=== PATIENT | male | born 1985 | race Caucasian/White ===

== ENCOUNTER 2016-09-24 14:03 | Inpatient (IN) | payer SELFPAY ==
[~2016-09-24] VITALS: Ht 188 cm; Wt 121.0 kg
[2016-09-24 14:05] VITALS: BP 148/84; PULSE 81; RESP 16; TEMP 98.4; O2SAT 97
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
[2016-09-24 15:27] LABS: BLOOD, URINE NEG (NEG); COMMENT (UR) CULT NOT INDICATED; CULTURE IF INDICATED CULT NOT INDICATED; GLUCOSE,URINE NEG (NEG); KETONE, URINE NEG (NEG); MUCUS URINE FEW /lpf (OCC); NITRITE,URINE NEG (NEG); PH, URINE 6.5 (5.0-8.5); SQUAMOUS EPITHELIAL CELL URINE <1 /hpf (0-5); URINE COLOR DARK-YELLOW (YELLW/STRAW)
[2016-09-24 15:53] LABS: AUTOMATED NEUTROPHIL # 5.4 TH/MM3 (1.8-7.7); BASOPHIL % 0.2 % (0.0-2.0); EOSINOPHIL # 0.7 TH/MM3 (0-0.4); EOSINOPHIL % 7.8 % (0.0-4.0); HEMATOCRIT 50.4 % (39.0-51.0); LYMPH % 15.1 % (9.0-44.0); LYMPHOCYTE # 1.3 TH/MM3 (1.0-4.8); MEAN CELL VOLUME 92.9 FL (80.0-100.0); MEAN CORPUSCULAR HGB CONC 34.5 % (32.0-36.0); MONO % 12.9 % (0.0-8.0); PLATELET COUNT 172 TH/MM3 (150-450); RED BLOOD COUNT 5.42 MIL/MM3 (4.50-5.90); RED CELL DISTRIBUTION WIDTH 14.1 % (11.6-17.2); WHITE BLOOD COUNT 8.5 TH/MM3 (4.0-11.0)
[2016-09-24 16:05] LABS: HEMO FLAGS AUTO DIFF
[2016-09-24 16:09] LABS: BICARBONATE 27.3 MEQ/L (21.0-32.0); INDIRECT BILIRUBIN 1.8 MG/DL (0.0-0.8); POTASSIUM 4.3 MEQ/L (3.5-5.1); TOTAL BILIRUBIN ADULT 7.5 MG/DL (0.2-1.0)
[2016-09-24 16:46] LABS: PLATELET ESTIMATE SMEAR NORMAL (NORMAL); PLATELET MORPHOLOGY NORMAL (NORMAL); SCAN/DIFF AUTO DIFF CONFIRMED
[2016-09-24 18:38] VITALS: BP 163/84; PULSE 76; RESP 15; TEMP 98.6; O2SAT 98
--- NOTE | 2016-09-24 20:11 | PD ---
Physical Exam Narrative Patient is a 31-year-old male, initially by the PA in triage where the workup was initiated. Patient states he has been feeling unwell for the past 4 or 5 days. He says he has had some fullness in his head and pain in his back. He said he noticed his eyes were yellow about 3 days ago. He says it got much worse yesterday, so he got nervous and came to the hospital. He says he really hasn't had any abdominal pain. He has not had much of an appetite. He says he has had a fever at home, but has not taken his temperature. He denies nausea or vomiting. He says his urine has also been darker in color lately. He denies heavy alcohol use, says he occasionally drinks a glass of wine or has a beer. He says he has had 2 Lortab, but otherwise has not taken any Tylenol. He denies taking any other medications. Data Data Last Documented VS Vital Signs Date Time Temp Pulse Resp B/P Pulse Ox O2 Delivery O2 Flow Rate FiO2 09/24/16 22:16 90 16 131/72 97 Room Air 09/24/16 18:38 98.6 Orders Complete Blood Count With Diff (09/24/16 14:47) Basic Metabolic Panel (Bmp) (09/24/16 14:47) Hepatic Functional Panel (09/24/16 14:47) Creatine Kinase (Cpk) (09/24/16 14:47) Influenzae A/B Antigen (09/24/16 14:47) Urinalysis - C+S If Indicated (09/24/16 14:47) Tylenol (Acetaminophen) (09/24/16 14:52) Us Abdomen Gallbladder (09/24/16 ) Ct Abd/Pel W Iv Contrast(Rout) (09/24/16 ) Morphine Inj (Morphine Inj) (09/24/16 21:15) Iohexol 350 Inj (Omnipaque 350 Inj) (09/24/16 21:32) Admit Order (Ed Use Only) (09/24/16 ) Labs Laboratory Tests Test 09/24/16 09/24/16 15:05 15:25 Urine Color DARK-YELLOW Urine Turbidity CLEAR Urine pH 6.5 Urine Specific [place] 1.019 Urine Protein TRACE mg/dL Urine Glucose (UA) NEG mg/dL Urine Ketones NEG mg/dL Urine Occult Blood NEG Urine Nitrite NEG Urine Bilirubin MOD Urine Urobilinogen 4.0 MG/DL Urine Leukocyte Esterase NEG Urine WBC 1 /hpf Urine Squamous Epithelial <1 /hpf Cells Urine Amorphous Sediment RARE Urine Mucus FEW /lpf Microscopic Urinalysis Comment CULT NOT INDICATED White Blood Count 8.5 TH/MM3 Red Blood Count 5.42 MIL/MM3 Hemoglobin 17.4 GM/DL Hematocrit 50.4 % Mean Corpuscular Volume 92.9 FL Mean Corpuscular Hemoglobin 32.0 PG Mean Corpuscular Hemoglobin 34.5 % Concent Red Cell Distribution Width 14.1 % Platelet Count 172 TH/MM3 Mean Platelet Volume 7.6 FL Neutrophils (%) (Auto) 64.0 % Lymphocytes (%) (Auto) 15.1 % Monocytes (%) (Auto) 12.9 % Eosinophils (%) (Auto) 7.8 % Basophils (%) (Auto) 0.2 % Neutrophils # (Auto) 5.4 TH/MM3 Lymphocytes # (Auto) 1.3 TH/MM3 Monocytes # (Auto) 1.1 TH/MM3 Eosinophils # (Auto) 0.7 TH/MM3 Basophils # (Auto) 0.0 TH/MM3 CBC Comment AUTO DIFF Differential Comment AUTO DIFF CONFIRMED Platelet Estimate NORMAL Platelet Morphology Comment NORMAL Red Cell Morphology Comment NORMAL Sodium Level 138 MEQ/L Potassium Level 4.3 MEQ/L Chloride Level 103 MEQ/L Carbon Dioxide Level 27.3 MEQ/L Anion Gap 8 MEQ/L Blood Urea Nitrogen 11 MG/DL Creatinine 1.10 MG/DL Estimat Glomerular Filtration 79 ML/MIN Rate Random Glucose 99 MG/DL Calcium Level 9.2 MG/DL Total Bilirubin 7.5 MG/DL Direct Bilirubin 5.7 MG/DL Indirect Bilirubin 1.8 MG/DL Aspartate Amino Transf 980 U/L (AST/SGOT) Alanine Aminotransferase 2725 U/L (ALT/SGPT) Alkaline Phosphatase 200 U/L Total Creatine Kinase 91 U/L Total Protein 8.0 GM/DL Albumin 4.0 GM/DL Acetaminophen Level LESS THAN 2.0 MCG/ML [facility] Supervised Visit with JUN: Yes Narrative Course Exam shows right upper quadrant tenderness on palpation. Labs show grossly abnormal liver function tests with elevated direct bilirubin as well as very elevated AST and ALT. Ultrasound of the gallbladder shows a contracted gallbladder, no signs of infection. CT of the abdomen and pelvis shows no acute abnormalities. Patient given morphine for pain. I spoke with Dr. Ashford of GI who suggests testing for acute hepatitis. Labs were ordered. Patient admitted for further management. Diagnosis Primary Impression: Hepatitis Admitting Information Admitting Physician Requests: Admit Scripts No Active Prescriptions or Reported Meds Niurka Linn MD Sep 24, 2016 20:11
[2016-09-24] MEDS ORDERED: MORPHINE SULFATE 4 MG/ML INJ IV PUSH ONE (21:15)
[2016-09-24] MEDS ORDERED: IOHEXOL 350 MG/ML 10 ML VIAL (for RAD DIAG) IV ONE (21:32)
--- NOTE | 2016-09-24 21:54 | RADRPT ---
EXAM DATE/TIME: 09/24/2016 20:16 [facility] COMPARISON: No previous studies available for comparison. INDICATIONS : Gallstones. MEDICAL HISTORY : Hypertension. Arthritis. SURGICAL HISTORY : Right hand surgery. Right knee surgery. Left knee surgery. ENCOUNTER: Initial ACUITY: 1 week PAIN SCORE: 8/10 LOCATION: Right upper quadrant MEASUREMENTS: LIVER: 19.5 cm length COMMON DUCT: 6 mm RIGHT KIDNEY: 12.8 x 6.2 x 6.7 cm FINDINGS: LIVER: Normal echotexture without focal lesion or ductal dilatation. COMMON DUCT: No intraluminal mass or stone visualized. GALLBLADDER: Contains no stones, demonstrates no wall thickening or pericholecystic fluid. PANCREAS: The visualized portions are within normal limits. RIGHT KIDNEY: No evidence of hydronephrosis, stone, or mass. CONCLUSION: 1. No acute findings. Gallbladder contracted. No biliary ductal dilatation. Kobe Deshpande MD on September 24, 2016 at 21:51 Board Certified Radiologist. This report was verified electronically.
[2016-09-24 22:16] VITALS: BP 131/72; PULSE 90; RESP 16; O2SAT 97
--- NOTE | 2016-09-24 22:16 | RADRPT ---
EXAM DATE/TIME: 09/24/2016 21:28 [facility] COMPARISON: No previous studies available for comparison. INDICATIONS : Diffuse abdominal pain. IV CONTRAST: 100 cc Omnipaque 350 (iohexol) IV ORAL CONTRAST: No oral contrast ingested. RADIATION DOSE: 16.66 CTDIvol (mGy) MEDICAL HISTORY : Hypertension. SURGICAL HISTORY : ortho ENCOUNTER: Initial ACUITY: 1 day PAIN SCALE: 6/10 LOCATION: abdomen TECHNIQUE: Volumetric scanning of the abdomen and pelvis was performed. Using automated exposure control and ad justment of the mA and/or kV according to patient size, radiation dose was kept as low as reasonably achievable to obtain optimal diagnostic quality images. FINDINGS: Lung bases are clear. Mild fatty liver. No significant abnormality of the spleen, adrenals, kidneys o r pancreas. No calcified gallstones or biliary ductal dilatation. There is mild constipation. No free air or free fluid. No bowel obstruction. No adenopathy. No acute bony abnormalities. CONCLUSION: 1. No acute findings within the abdomen and pelvis. Mild constipation. Mild fatty liver. Kobe Deshpande MD on September 24, 2016 at 22:11 Board Certified Radiologist. This report was verified electronically.
[2016-09-24] MEDS ORDERED: NALOXONE HCL 0.4 MG/ML AMP IV PRN (23:30)
[2016-09-24] MEDS ORDERED: SODIUM CHLORIDE 0.9% FLUSH 5 ML FLUSH FLUSH PRN (23:30)
[2016-09-24] MEDS ORDERED: ONDANSETRON HCL 4 MG/2 ML VIAL IVP PRN (23:30)
[2016-09-25] VITALS (8 sets, daily range): BP systolic 129–161; BP diastolic 64–97; PULSE 63–79; RESP 18–20; TEMP 96–97.2; O2SAT 96–100
[2016-09-25] MEDS: SODIUM CHLOR 0.9% 1000 ML INJ 1,000 ML IV SCH ×3 (00:34→20:16)
[2016-09-25] MEDS ORDERED: MORPHINE SULFATE 4 MG/ML INJ IV PUSH PRN (02:15)
[2016-09-25] MEDS: MORPHINE SULFATE 4 MG/ML INJ IV PUSH PRN ×5 (02:27→20:13)
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
[2016-09-25] MEDS: SODIUM CHLORIDE 0.9% FLUSH 5 ML FLUSH FLUSH SCH ×2 (07:23→18:41)
[2016-09-25 08:25] LABS: ALKALINE PHOSPHATASE 167 U/L (45-117); ALT (GPT) 2491 U/L (12-78); ANION GAP 5 MEQ/L (5-15); AST (GOT) 1043 U/L (15-37); BICARBONATE 28.4 MEQ/L (21.0-32.0); BLOOD UREA NITROGEN 10 MG/DL (7-18); CHLORIDE 105 MEQ/L (98-107); GLOMERULAR FILTRATION RATE 88 ML/MIN (>89); POTASSIUM 3.9 MEQ/L (3.5-5.1); SODIUM (NA) 138 MEQ/L (136-145); TOTAL BILIRUBIN ADULT 7.7 MG/DL (0.2-1.0)
--- NOTE | 2016-09-25 10:25 | PD.CONS ---
HPI History of Present Illness This is a 31 year old male who came to the ER for evaluation of jaundice and dark urine. He reports that 2-3 days ago, he noticed that his eyes were yellow and his urine was dark. He reports that he did have some mild nausea and occasional vomiting, but denies any abdominal pain or diarrhea. He reports that he has been a little more tired than usual, but denies any fever or chills. He reports that he occasionally drinks ETOH, but usually one beer at a time and not on a regular basis. The last time he had any ETOH was last week. He does not use any illicit drugs and denies any hx of IVDA. He has several homemade tattoos but states that these were done > 5years ago. He does report that he recently had new sexual contact about a month ago with his ex-, who he believes had mentioned in the past that she had hepatitis, but does not know for sure. He denies any new medication use and does not use any Tylenol products or other OTC or herbal supplements. Abdomen/Pelvis CT (09/24/16)----> 1. No acute findings within the abdomen and pelvis. Mild constipation. Mild fatty liver. Gall Bladder Ultrasound (09/24/16)----> 1. No acute findings. Gallbladder contracted. No biliary ductal dilatation. He is not currently having any nausea, vomiting, or abdominal pain or tenderness and reports that he is hungry. (Kiara Da Silva) PFSH Past Medical History Arthritis Left leg fracture Past Surgical History ORIF to LLE fx (Kiara Da Silva) Coded Allergies: Hydrocodone (Verified Allergy, Severe, HOT & ITCHY., 03/16/15) Latex (Verified Allergy, Severe, Itching, 03/16/15) Aspirin (Verified Adverse Reaction, Severe, STOMACH DELEON, 03/16/15) Medications Allergies Coded Allergies Type Severity Reaction Last Updated Verified Hydrocodone Allergy Severe HOT & ITCHY. 03/16/15 Yes Latex Allergy Severe Itching 03/16/15 Yes Aspirin Adverse Reaction Severe STOMACH DELEON 03/16/15 Yes Active Scripts Medications Dose Route/Sig Days Date Category No Active Prescriptions or Reported Medications Rx Family History Denies any known history of family members with liver diseas.e Social History Social etoh use, not on regular basis, usually 1 at most 2 beers at a time, last time last week. No tobacco. No illicit drug use. (Kiara Da Silva Lynn QUINTERO) Review of Systems Constitutional: COMPLAINS OF: Fatigue, DENIES: Fever, Chills Respiratory: DENIES: Cough Cardiovascular: DENIES: Chest pain Gastrointestinal: COMPLAINS OF: Nausea, Vomiting, DENIES: Abdominal pain, Bloody stools, Constipation, Diarrhea, Anorexia, Swelling of Abdomen, Heartburn , Hematemesis Integumentary: COMPLAINS OF: Jaundice Hematologic/lymphatic: DENIES: Bruising Neurologic: DENIES: Headache Psychiatric: DENIES: Confusion ROS dark urine (Kiara Da Silvadiamond QUINTERO) GI Exam Vitals I&O Vital Signs Date Time Temp Pulse Resp B/P Pulse Ox O2 Delivery O2 Flow Rate FiO2 09/25/16 08:00 96.6 71 18 133/85 97 09/25/16 04:00 97.2 65 18 130/64 98 09/25/16 02:23 97 09/25/16 01:40 96.0 70 18 161/97 100 09/24/16 22:16 90 16 131/72 97 Room Air 09/24/16 18:38 98.6 76 15 163/84 98 Room Air 09/24/16 18:35 76 16 98 09/24/16 14:05 98.4 81 16 148/84 97 I/O 09/24/16 09/24/16 09/24/16 09/25/16 09/25/16 09/25/16 07:00 15:00 23:00 07:00 15:00 23:00 Intake Total 450 ml Balance 450 ml Intake Oral 0 ml IV Total 450 ml # Voids 1 # Bowel Movements 0 Imaging Last Impressions Gall Bladder Ultrasound 09/24/16 0000 Signed Impressions: Service Date/Time: Saturday, September 24, 2016 20:16 - CONCLUSION: 1. No acute findings. Gallbladder contracted. No biliary ductal dilatation. Kobe Deshpande MD Abdomen/Pelvis CT 09/24/16 0000 Signed Impressions: Service Date/Time: Saturday, September 24, 2016 21:28 - CONCLUSION: 1. No acute findings within the abdomen and pelvis. Mild constipation. Mild fatty liver. Kobe Deshpande MD Laboratory Test 09/24/16 09/24/16 09/25/16 15:05 15:25 07:25 Urine Color DARK-YELLOW Urine Turbidity CLEAR Urine pH 6.5 Urine Specific [place] 1.019 Urine Protein TRACE mg/dL Urine Glucose (UA) NEG mg/dL Urine Ketones NEG mg/dL Urine Occult Blood NEG Urine Nitrite NEG Urine Bilirubin MOD Urine Urobilinogen 4.0 MG/DL Urine Leukocyte Esterase NEG Urine WBC 1 /hpf Urine Squamous Epithelial <1 /hpf Cells Urine Amorphous Sediment RARE Urine Mucus FEW /lpf Microscopic Urinalysis Comment CULT NOT INDICATED White Blood Count 8.5 TH/MM3 Red Blood Count 5.42 MIL/MM3 Hemoglobin 17.4 GM/DL Hematocrit 50.4 % Mean Corpuscular Volume 92.9 FL Mean Corpuscular Hemoglobin 32.0 PG Mean Corpuscular Hemoglobin 34.5 % Concent Red Cell Distribution Width 14.1 % Platelet Count 172 TH/MM3 Mean Platelet Volume 7.6 FL Neutrophils (%) (Auto) 64.0 % Lymphocytes (%) (Auto) 15.1 % Monocytes (%) (Auto) 12.9 % Eosinophils (%) (Auto) 7.8 % Basophils (%) (Auto) 0.2 % Neutrophils # (Auto) 5.4 TH/MM3 Lymphocytes # (Auto) 1.3 TH/MM3 Monocytes # (Auto) 1.1 TH/MM3 Eosinophils # (Auto) 0.7 TH/MM3 Basophils # (Auto) 0.0 TH/MM3 CBC Comment AUTO DIFF Differential Comment AUTO DIFF CONFIRMED Platelet Estimate NORMAL Platelet Morphology Comment NORMAL Red Cell Morphology Comment NORMAL Sodium Level 138 MEQ/L 138 MEQ/L Potassium Level 4.3 MEQ/L 3.9 MEQ/L Chloride Level 103 MEQ/L 105 MEQ/L Carbon Dioxide Level 27.3 MEQ/L 28.4 MEQ/L Anion Gap 8 MEQ/L 5 MEQ/L Blood Urea Nitrogen 11 MG/DL 10 MG/DL Creatinine 1.10 MG/DL 1.00 MG/DL Estimat Glomerular Filtration 79 ML/MIN 88 ML/MIN Rate Random Glucose 99 MG/DL 86 MG/DL Calcium Level 9.2 MG/DL 9.0 MG/DL Total Bilirubin 7.5 MG/DL 7.7 MG/DL Direct Bilirubin 5.7 MG/DL Indirect Bilirubin 1.8 MG/DL Aspartate Amino Transf 980 U/L 1043 U/L (AST/SGOT) Alanine Aminotransferase 2725 U/L 2491 U/L (ALT/SGPT) Alkaline Phosphatase 200 U/L 167 U/L Total Creatine Kinase 91 U/L Total Protein 8.0 GM/DL 7.2 GM/DL Albumin 4.0 GM/DL 3.4 GM/DL Acetaminophen Level LESS THAN 2.0 MCG/ML Date/Time Procedure Status Source Growth 09/24/16 15:05 Influenza Types A,B Antigen (SYDNIE) - Final Complete Nasal Aspirate NEGATIVE FOR FLU A AND B ANTIGEN.... Physical Examination HEENT: Normocephalic; atraumatic; + jaundice. Throat is clear. NECK: Neck is supple, no JVD, no lymphadenopathy. CHEST: CTA CARDIAC: RRR ABDOMEN: Soft, nondistended, NONtender; no hepatosplenomegaly; bowel sounds are present in all four quadrants. EXTREMITIES: No clubbing, cyanosis, or edema. SKIN: Normal; no rash; + jaundice. WIRE WORKER: No focal deficits; alert and oriented times three. (Kiara Da Silva) Assessment and Plan Plan ASSESSMENT: - Acute hepatitis, likely viral. Pt reports 3 day hx of n/v, jaundice, dark urine. Occasional ETOH use, last week was the last time- only 1-2 beers at a time, no IVDA, no Tylenol, no new meds, no herbal supplements. Hx homemade tattoos-none for 5 years. He does note that he had sexual contact with his ex- about a month ago and that he believes it was mentioned in the past that she had hepatitis, but he does not know for sure. Abdomen/Pelvis CT (09/24/16)----> 1. No acute findings within the abdomen and pelvis. Mild constipation. Mild fatty liver. Gall Bladder Ultrasound (09/24/16)----> 1. No acute findings. Gallbladder contracted. No biliary ductal dilatation. He is not currently having any nausea, vomiting, or abdominal pain or tenderness and reports that he is hungry. LFTs essentially the same as yesterday, T. Bili 7.7, AST 1043, ALT 2491, Alk Phosph 167. Will await hepatitis panel and order liver workup to rule out other underlying liver disease. Suspect this is viral hepatitis. PLAN: - JOHANNA - Await hepatitis panel - AFP level - LEIDA, ASMA, AMA - Ceruloplasmin, Alpha 1 Antitrypsin - Ferritin, Iron saturation - Monitor LFTs - Supportive care - Further recommendations to follow based on results of above - Pt seen and examined by Dr. Ashford and myself and this note is written on his behalf (Kiara Da Silva) Physician Comments Seen and examined with CLAY BURNER, Acute hepatitis, probably viral. Serologies, immunologies-p. Non encephalopathic, will follow. Thank you (Susi Ashford MD) Kiara Da Silva Sep 25, 2016 10:25 Susi Ashford MD Sep 25, 2016 13:50
[2016-09-25 12:50] LABS: FERRITIN 7940 NG/ML (26-388); TRANSFERRIN IRON PROFILE 275 MG/DL (200-360)
--- NOTE | 2016-09-25 15:25 | HHI.PR ---
Subjective Remarks Follow up hepatitis, liver failure. The patient reports ongoing abdominal pain and headache. States that he has been nauseous, but no vomiting. Objective Vitals Vital Signs Date Time Temp Pulse Resp B/P Pulse Ox O2 Delivery O2 Flow Rate FiO2 09/25/16 11:54 96.3 65 18 140/81 97 09/25/16 10:56 18 09/25/16 10:00 96 21 09/25/16 08:00 96.6 71 18 133/85 97 09/25/16 04:00 97.2 65 18 130/64 98 09/25/16 02:23 97 09/25/16 01:40 96.0 70 18 161/97 100 09/24/16 22:16 90 16 131/72 97 Room Air 09/24/16 18:38 98.6 76 15 163/84 98 Room Air 09/24/16 18:35 76 16 98 I/O 09/24/16 09/24/16 09/24/16 09/25/16 09/25/16 09/25/16 07:00 15:00 23:00 07:00 15:00 23:00 Intake Total 450 ml Balance 450 ml Intake Oral 0 ml IV Total 450 ml # Voids 1 # Bowel Movements 0 Result Diagram: 09/24/16 1525 09/25/16 0725 Imaging Last Impressions Gall Bladder Ultrasound 09/24/16 0000 Signed Impressions: Service Date/Time: Saturday, September 24, 2016 20:16 - CONCLUSION: 1. No acute findings. Gallbladder contracted. No biliary ductal dilatation. Kobe Deshpande MD Abdomen/Pelvis CT 09/24/16 0000 Signed Impressions: Service Date/Time: Saturday, September 24, 2016 21:28 - CONCLUSION: 1. No acute findings within the abdomen and pelvis. Mild constipation. Mild fatty liver. Kobe Deshpande MD Objective Remarks General: No acute distress. Heart: Regular rate and rhythm. No murmur. Lungs: Clear to auscultation bilaterally. No wheezes, rales, or rhonchi. Breathing is nonlabored. Abdomen: Soft, nontender, nondistended. Extremities: No lower extremity edema. Psych: Alert and oriented. Urinary Catheter: No Vascular Central Line Catheter: No A/P Problem List: (1) Acute hepatitis ICD Code: B17.9 Status: Acute (2) Elevated LFTs ICD Code: R94.5 Status: Acute Assessment and Plan 1. Elevated LFTs, acute hepatitis: Appreciate GI recommendations. Hepatitis panel pending. Avoid hepatotoxic medications. 2. DVT prophylaxis: Ambulation. Presley Romero MD Sep 25, 2016 15:25
[2016-09-26] VITALS: BP 147/80; PULSE 63; RESP 16; TEMP 97.2; O2SAT 99
[2016-09-26] MEDS: MORPHINE SULFATE 4 MG/ML INJ IV PUSH PRN ×6 (00:14→22:09)
[2016-09-26] MEDS: SODIUM CHLOR 0.9% 1000 ML INJ 1,000 ML IV SCH ×2 (04:49→16:18)
[2016-09-26 07:10] VITALS: BP 130/69; PULSE 66; RESP 18; TEMP 95.7; O2SAT 98
[2016-09-26 08:27] LABS: INDIRECT BILIRUBIN 1.5 MG/DL (0.0-0.8); TOTAL BILIRUBIN ADULT 6.4 MG/DL (0.2-1.0)
[2016-09-26] MEDS: SODIUM CHLORIDE 0.9% FLUSH 5 ML FLUSH FLUSH SCH ×2 (08:47→20:52)
[2016-09-26 12:05] VITALS: BP 131/72; PULSE 86; RESP 18; TEMP 96.4; O2SAT 95
[2016-09-26 12:34] VITALS: O2SAT 97
--- NOTE | 2016-09-26 14:45 | HHI.PR ---
Subjective Remarks Follow up hepatitis, liver failure. Abdominal pain is improving. No nausea/ vomiting. He does report an episode of hemoptysis this morning. Denies dyspnea. Objective Vitals Vital Signs Date Time Temp Pulse Resp B/P Pulse Ox O2 Delivery O2 Flow Rate FiO2 09/26/16 12:34 97 09/26/16 12:05 96.4 86 18 131/72 95 09/26/16 09:08 18 09/26/16 07:10 95.7 66 18 130/69 98 09/26/16 00:00 97.2 63 16 147/80 99 09/25/16 20:00 96.7 79 20 131/74 97 09/25/16 16:00 97.1 63 18 129/71 98 I/O 09/25/16 09/25/16 09/25/16 09/26/16 09/26/16 09/26/16 07:00 15:00 23:00 07:00 15:00 23:00 Intake Total 450 ml 1200 ml 1317 ml 1640 ml Balance 450 ml 1200 ml 1317 ml 1640 ml Intake Oral 0 ml 1200 ml 1080 ml IV Total 450 ml 1317 ml 560 ml # Voids 1 2 1 # Bowel Movements 0 0 Result Diagram: 09/24/16 1525 09/25/16 0725 Imaging Last Impressions Gall Bladder Ultrasound 09/24/16 0000 Signed Impressions: Service Date/Time: Saturday, September 24, 2016 20:16 - CONCLUSION: 1. No acute findings. Gallbladder contracted. No biliary ductal dilatation. Kobe Deshpande MD Abdomen/Pelvis CT 09/24/16 0000 Signed Impressions: Service Date/Time: Saturday, September 24, 2016 21:28 - CONCLUSION: 1. No acute findings within the abdomen and pelvis. Mild constipation. Mild fatty liver. Kobe Deshpande MD Objective Remarks General: No acute distress. Heart: Regular rate and rhythm. No murmur. Lungs: Clear to auscultation bilaterally. No wheezes, rales, or rhonchi. Breathing is nonlabored. Abdomen: Soft, nontender, nondistended. Extremities: No lower extremity edema. Psych: Alert and oriented. Urinary Catheter: No Vascular Central Line Catheter: No A/P Problem List: (1) Acute hepatitis ICD Code: B17.9 Status: Acute (2) Elevated LFTs ICD Code: R94.5 Status: Acute Assessment and Plan 1. Elevated LFTs, acute hepatitis: Appreciate GI recommendations. Hepatitis panel pending. Avoid hepatotoxic medications. LFTs are now trending down. 2. DVT prophylaxis: Ambulation. 3. Hemoptysis: Check CXR, INR. Presley Romero MD Sep 26, 2016 14:45
[2016-09-26 16:00] VITALS: BP 138/93; PULSE 66; RESP 18; TEMP 96.7; O2SAT 99
--- NOTE | 2016-09-26 16:00 | RADRPT ---
EXAM DATE/TIME: 09/26/2016 15:28 [facility] COMPARISON: No previous studies available for comparison. INDICATIONS : Short of Breath, Hemoptysis, Chest Pain. MEDICAL HISTORY : Hypertension. Arthritis. SURGICAL HISTORY : Right hand surgery. Right knee surgery. Left knee surgery. ENCOUNTER: Initial ACUITY: 1 day PAIN SCORE: 8/10 LOCATION: Bilateral chest FINDINGS: A single view of the chest demonstrates the lungs to be symmetrically aerated without evidence of mas s, infiltrate or effusion. The cardiomediastinal contours are unremarkable. Osseous structures are intact. CONCLUSION: No acute disease. Kobe Deshpande MD on September 26, 2016 at 15:59 Board Certified Radiologist. This report was verified electronically.
[2016-09-26 19:51] VITALS: BP 147/73; PULSE 64; RESP 18; TEMP 97.4; O2SAT 98
[2016-09-27] VITALS: BP 131/88; PULSE 66; RESP 16; TEMP 98; O2SAT 97
[2016-09-27] MEDS: SODIUM CHLOR 0.9% 1000 ML INJ 1,000 ML IV SCH ×3 (02:00→21:32)
[2016-09-27 07:19] VITALS: BP 137/79; PULSE 71; RESP 17; TEMP 96.7; O2SAT 99
[2016-09-27 07:37] LABS: PROTHROMBIN TIME - PATIENT 10.8 SEC (9.8-11.6)
[2016-09-27 07:59] LABS: ALKALINE PHOSPHATASE 168 U/L (45-117); ALT (GPT) 2067 U/L (12-78); ANION GAP 7 MEQ/L (5-15); AST (GOT) 857 U/L (15-37); BICARBONATE 23.7 MEQ/L (21.0-32.0); BLOOD UREA NITROGEN 10 MG/DL (7-18); CHLORIDE 105 MEQ/L (98-107); GLOMERULAR FILTRATION RATE 113 ML/MIN (>89); POTASSIUM 4.1 MEQ/L (3.5-5.1); SODIUM (NA) 136 MEQ/L (136-145); TOTAL BILIRUBIN ADULT 5.9 MG/DL (0.2-1.0)
[2016-09-27] MEDS: SODIUM CHLORIDE 0.9% FLUSH 5 ML FLUSH FLUSH SCH ×2 (08:24→19:54)
[2016-09-27 11:25] VITALS: BP 140/84; PULSE 80; RESP 17; TEMP 96.7; O2SAT 98
--- NOTE | 2016-09-27 13:44 | HHI.PR ---
Subjective Remarks Follow-up for likely viral hepatitis. Patient is currently doing well. He reports no acute concerns. Denies any chest pain, shortness of breath, fever or chills. He is tolerating diet well. Friend at bedside. Objective Vitals Vital Signs Date Time Temp Pulse Resp B/P Pulse Ox O2 Delivery O2 Flow Rate FiO2 09/27/16 07:19 96.7 71 17 137/79 99 09/27/16 00:00 98.0 66 16 131/88 97 09/26/16 19:51 97.4 64 18 147/73 98 09/26/16 17:45 18 09/26/16 16:00 96.7 66 18 138/93 99 I/O 09/26/16 09/26/16 09/26/16 09/27/16 09/27/16 09/27/16 07:00 15:00 23:00 07:00 15:00 23:00 Intake Total 1640 ml 960 ml 1132 ml 1028 ml 499 ml Balance 1640 ml 960 ml 1132 ml 1028 ml 499 ml Intake Oral 1080 ml 960 ml 720 ml 240 ml IV Total 560 ml 412 ml 788 ml 499 ml # Voids 1 5 2 2 # Bowel Movements 0 0 0 Result Diagram: 09/24/16 1525 09/27/16 0700 Imaging Last Impressions Chest X-Ray 09/26/16 0000 Signed Impressions: Service Date/Time: Monday, September 26, 2016 15:28 - CONCLUSION: No acute disease. Kobe Deshpande MD Gall Bladder Ultrasound 09/24/16 0000 Signed Impressions: Service Date/Time: Saturday, September 24, 2016 20:16 - CONCLUSION: 1. No acute findings. Gallbladder contracted. No biliary ductal dilatation. Kobe Deshpande MD Abdomen/Pelvis CT 09/24/16 0000 Signed Impressions: Service Date/Time: Saturday, September 24, 2016 21:28 - CONCLUSION: 1. No acute findings within the abdomen and pelvis. Mild constipation. Mild fatty liver. Kobe Deshpande MD Objective Remarks GENERAL: Alert, oriented 3. No acute distress. SKIN: Warm and dry. HEAD: Normocephalic. EYES: Bilateral scleral icterus. No sublingual icterus present. No injection or drainage. NECK: Supple, trachea midline. No JVD or lymphadenopathy. CARDIOVASCULAR: Regular rate and rhythm without murmurs, gallops, or rubs. RESPIRATORY: Breath sounds equal bilaterally. No accessory muscle use. GASTROINTESTINAL: Abdomen soft, non-tender except mild tenderness on the right upper quadrant, nondistended. MUSCULOSKELETAL: No cyanosis, or edema. BACK: Nontender without obvious deformity. No CVA tenderness. Procedures None A/P Problem List: (1) Acute hepatitis ICD Code: B17.9 Status: Acute Assessment and Plan Mr. Mayberry is a 31-year-old male with no significant history who was admitted for evaluation of jaundice and dark urine. Workup indicated elevated liver enzymes. Viral hepatitis suspected. - Probable acute viral hepatitis - Clinically patient is improving - GI is following this patient. LFTs are plateaued - Hepatitis panel pending. - PT/INR normal. - Will probably discharge patient home once hepatitis panel is back. Full code. Ambulation. Discussed with gastroenterology. Narcisa Zavala DO Sep 27, 2016 13:44
--- NOTE | 2016-09-27 13:52 | HHI.GIFU ---
Subjective Remarks Resting in room. States he is having some generalized malaise/joint pain, backache. No abdominal pain. No n/v. No diarrhea. Objective Vitals I&O Vital Signs Date Time Temp Pulse Resp B/P Pulse Ox O2 Delivery O2 Flow Rate FiO2 09/27/16 07:19 96.7 71 17 137/79 99 09/27/16 00:00 98.0 66 16 131/88 97 09/26/16 19:51 97.4 64 18 147/73 98 09/26/16 17:45 18 09/26/16 16:00 96.7 66 18 138/93 99 I/O 09/26/16 09/26/16 09/26/16 09/27/16 09/27/16 09/27/16 07:00 15:00 23:00 07:00 15:00 23:00 Intake Total 1640 ml 960 ml 1132 ml 1028 ml 499 ml Balance 1640 ml 960 ml 1132 ml 1028 ml 499 ml Intake Oral 1080 ml 960 ml 720 ml 240 ml IV Total 560 ml 412 ml 788 ml 499 ml # Voids 1 5 2 2 # Bowel Movements 0 0 0 Laboratory Laboratory Tests Test 09/27/16 07:00 Prothrombin Time 10.8 Prothromb Time International 1.0 Ratio Sodium Level 136 Potassium Level 4.1 Chloride Level 105 Carbon Dioxide Level 23.7 Anion Gap 7 Blood Urea Nitrogen 10 Creatinine 0.81 Estimat Glomerular Filtration 113 Rate Random Glucose 87 Calcium Level 8.8 Total Bilirubin 5.9 Aspartate Amino Transf 857 (AST/SGOT) Alanine Aminotransferase 2067 (ALT/SGPT) Alkaline Phosphatase 168 Total Protein 6.9 Albumin 3.1 Date/Time Procedure Status Source Growth 09/24/16 15:05 Influenza Types A,B Antigen (SYDNIE) - Final Complete Nasal Aspirate NEGATIVE FOR FLU A AND B ANTIGEN.... Imaging Last Impressions Chest X-Ray 09/26/16 0000 Signed Impressions: Service Date/Time: Monday, September 26, 2016 15:28 - CONCLUSION: No acute disease. Kobe Deshpande MD Gall Bladder Ultrasound 09/24/16 0000 Signed Impressions: Service Date/Time: Saturday, September 24, 2016 20:16 - CONCLUSION: 1. No acute findings. Gallbladder contracted. No biliary ductal dilatation. Kobe Deshpande MD Abdomen/Pelvis CT 09/24/16 0000 Signed Impressions: Service Date/Time: Saturday, September 24, 2016 21:28 - CONCLUSION: 1. No acute findings within the abdomen and pelvis. Mild constipation. Mild fatty liver. Kobe Deshpande MD Physical Exam HEENT: Normocephalic; atraumatic; no jaundice. CHEST: Chest is clear to auscultation and percussion. CARDIAC: RRR. ABDOMEN: Soft, nondistended, nontender; no hepatosplenomegaly; bowel sounds are present in all four quadrants. EXTREMITIES: No clubbing, cyanosis, or edema. SKIN: Normal; no rash; no jaundice. BUSH REGENERATOR: No focal deficits; alert and oriented times three. Assessment and Plan Plan ASSESSMENT: - Acute hepatitis, likely viral. Pt reports 3 day hx of n/v, jaundice, dark urine. Occasional ETOH use, last week was the last time- only 1-2 beers at a time, no IVDA, no Tylenol, no new meds, no herbal supplements. Hx homemade tattoos-none for 5 years. He does note that he had sexual contact with his ex- about a month ago and that he believes it was mentioned in the past that she had hepatitis, but he does not know for sure. Abdomen/Pelvis CT (09/24/16)----> 1. No acute findings within the abdomen and pelvis. Mild constipation. Mild fatty liver. Gall Bladder Ultrasound (09/24/16)----> 1. No acute findings. Gallbladder contracted. No biliary ductal dilatation. He is not currently having any nausea, vomiting, or abdominal pain or tenderness and reports that he is hungry. LFTs seem to have plateaued starting to trend down, T. Bili 5.9, AST 857, ALT 2067, Alk Phosph 168. AFP 2.8, Iron saturation 97%, Ferritin 7940, Alpha 1 Antitrypsin pending, Ceruloplasmin pending, Hepatitis profile pending. Suspect this is viral hepatitis, awaiting hepatitis profile. Will get Hfe gene for iron saturation 97%. PLAN: - JOHANNA - Await hepatitis panel - Await LEIDA, ASMA, AMA - Await Ceruloplasmin, Alpha 1 Antitrypsin - Hfe gene - Monitor LFTs - Supportive care - Further recommendations to follow based on results of above - Pt seen and examined by Dr. Wilcox and myself and this note is written on her behalf Kiara Da Silva Sep 27, 2016 13:52
[2016-09-27 15:10] VITALS: BP 144/80; PULSE 70; RESP 17; TEMP 97.2; O2SAT 97
[2016-09-27 19:45] VITALS: BP 143/84; PULSE 72; RESP 16; TEMP 98.2; O2SAT 97
[2016-09-28] VITALS: BP 116/65; PULSE 63; RESP 16; TEMP 97.1; O2SAT 96
[2016-09-28] MEDS: SODIUM CHLOR 0.9% 1000 ML INJ 1,000 ML IV SCH ×2 (06:05→11:08)
[2016-09-28 07:25] VITALS: BP 126/79; PULSE 65; RESP 16; TEMP 96.3; O2SAT 95
[2016-09-28 08:58] LABS: INDIRECT BILIRUBIN 1.4 MG/DL (0.0-0.8); TOTAL BILIRUBIN ADULT 4.8 MG/DL (0.2-1.0)
[2016-09-28] MEDS: SODIUM CHLORIDE 0.9% FLUSH 5 ML FLUSH FLUSH SCH (09:00)
[2016-09-28] MEDS ORDERED: OXYC-392 PO (10:07)
[2016-09-28] MEDS ORDERED: MORPHINE SULFATE 4 MG/ML INJ IV PUSH ONE (11:00)
--- NOTE | 2016-09-28 11:27 | HHI.DS ---
Discharge Summary Admission Date Sep 24, 2016 at 11:05 pm Discharge Date: Sep 28, 2016 Admitting Diagnosis Liver failure (1) Acute hepatitis ICD Code: B17.9 Procedures None Brief History - From Admission 31 years old male with no past medical history presented to the ED with worsening symptoms of generalized weakness aching, flulike syndrome, dark urine , light stool, icteric eyes worsening over the last 3 days. Patient reported being concerned about him being in [place] with his friend in a close down camp due to "tuberculosis", patient also mentioned having sexual intercourse with his ex who has hepatitis months ago. Patient denied abdominal surprisingly, although he did have nausea and vomiting , congestion in his nose, feeling throbbing in the eyes, sore throat, generalized aching. In ED he was found to have transaminase elevated in AST over ALT 980/2725, increased alkaline phosphatase 200, increased total bilirubin 2.7 CT abdomen and gallbladder ultrasound was negative, I asked ED physician to consult GI who recommended admission, need to rule out acute hepatitis CBC/BMP: 09/24/16 1525 09/27/16 0700 Significant Findings Laboratory Tests Test 09/25/16 09/26/16 09/27/16 09/28/16 11:43 06:47 07:00 06:47 Iron Level 374 MCG/DL (65-175) Percent Iron Saturation 97.1 % (20-50) Ferritin 7940 NG/ML (26-388) Total Bilirubin 6.4 MG/DL 5.9 MG/DL 4.8 MG/DL (0.2-1.0) (0.2-1.0) (0.2-1.0) Direct Bilirubin 4.9 MG/DL 3.4 MG/DL (0.0-0.2) (0.0-0.2) Indirect Bilirubin 1.5 MG/DL 1.4 MG/DL (0.0-0.8) (0.0-0.8) Aspartate Amino Transf 770 U/L (15-37) 857 U/L (15-37) 827 U/L (15-37) (AST/SGOT) Alanine Aminotransferase 2068 U/L 2067 U/L 2062 U/L (ALT/SGPT) (12-78) (12-78) (12-78) Alkaline Phosphatase 162 U/L 168 U/L 176 U/L (45-117) (45-117) (45-117) Albumin 3.2 GM/DL 3.1 GM/DL 3.3 GM/DL (3.4-5.0) (3.4-5.0) (3.4-5.0) Imaging Last Impressions Chest X-Ray 09/26/16 0000 Signed Impressions: Service Date/Time: Monday, September 26, 2016 15:28 - CONCLUSION: No acute disease. Kobe Deshpande MD Gall Bladder Ultrasound 09/24/16 0000 Signed Impressions: Service Date/Time: Saturday, September 24, 2016 20:16 - CONCLUSION: 1. No acute findings. Gallbladder contracted. No biliary ductal dilatation. Kobe Deshpande MD Abdomen/Pelvis CT 09/24/16 0000 Signed Impressions: Service Date/Time: Saturday, September 24, 2016 21:28 - CONCLUSION: 1. No acute findings within the abdomen and pelvis. Mild constipation. Mild fatty liver. Kobe Deshpande MD PE at Discharge GENERAL: Alert, oriented 3. No acute distress. SKIN: Warm and dry. HEAD: Normocephalic. EYES: Bilateral scleral icterus. No sublingual icterus present. No injection or drainage. NECK: Supple, trachea midline. No JVD or lymphadenopathy. CARDIOVASCULAR: Regular rate and rhythm without murmurs, gallops, or rubs. RESPIRATORY: Breath sounds equal bilaterally. No accessory muscle use. GASTROINTESTINAL: Abdomen soft, non-tender except mild tenderness on the right upper quadrant, nondistended. MUSCULOSKELETAL: No cyanosis, or edema. BACK: Nontender without obvious deformity. No CVA tenderness. Pt update on day of discharge Patient is doing well. No acute concerns. Denies any CP, SOB, fever, chills. Hospital Course Mr. Mayberry is a 31-year-old male with no significant history who was admitted for evaluation of jaundice and dark urine. Workup indicated elevated liver enzymes. Viral hepatitis was suspected. GI followed this patient closely. Viral work up indicated Hep C. Patient was counselled heavily regarding safe sex, safe tatto etc. Also, advised patient to avoid hepatotoxic medications. Patient was strongly advised to follow up with GI. Patient verbalized understanding. Post discharge, labs indicate Hep C genotype 2B, RNA by PCR [id number]. Discussed with GI prior to discharging patient. Pt Condition on Discharge: Good Discharge Disposition: Discharge Home Discharge Time: > 30 minutes Discharge Instructions DIET: Follow Instructions for: As Tolerated, No Restrictions Activities you can perform: Regular-No Restrictions Follow up Referrals: Gastroenterology - 10 Days with Roma Wilcox MD PCP Follow-up - 1 Week New Medications: Oxycodone (Oxycodone) 5 Mg Tab 5 MG PO Q6H PRN PAIN #15 Ref 0 TAB Narcisa Zavala DO Sep 28, 2016 11:27
[2016-09-28 12:22] VITALS: BP 135/83; PULSE 80; RESP 16; TEMP 96.7; O2SAT 98
--- NOTE | 2016-09-28 15:34 | HHI.GIFU ---
GI Follow-up Note Consult Follow-up Subjective: Patient laying in bed comfortably, feeling bettr, itching.Being discharged.discussed about his results and need for close fu and abstinence from nay hepatotoxics . Objective: PHYSICAL EXAMINATION: Vitals signs stable No fever HEENT: Pupils round and reactive to light; normocephalic; atraumatic; jaundice. Throat is clear. NECK: Neck is supple, no JVD, no lymphadenopathy. CHEST: Chest is clear to auscultation and percussion. CARDIAC: Regular rate and rhythm with no murmur gallop or rubs. ABDOMEN: Soft, nondistended, nontender; no hepatosplenomegaly; bowel sounds are present in all four quadrants. EXTREMITIES: No clubbing, cyanosis, or edema. SKIN: Normal; no rash; jaundice, multiple tattoo. itching [employer]: No focal deficits; alert and oriented times three, no signs of hepatic encephalopathy Available Data (labs, X- Rays, Procedues) : Laboratory Tests Test 09/27/16 09/28/16 07:00 06:47 Prothrombin Time 10.8 SEC Prothromb Time International 1.0 RATIO Ratio Sodium Level 136 MEQ/L Potassium Level 4.1 MEQ/L Chloride Level 105 MEQ/L Carbon Dioxide Level 23.7 MEQ/L Anion Gap 7 MEQ/L Blood Urea Nitrogen 10 MG/DL Creatinine 0.81 MG/DL Estimat Glomerular Filtration 113 ML/MIN Rate Random Glucose 87 MG/DL Calcium Level 8.8 MG/DL Total Bilirubin 5.9 MG/DL 4.8 MG/DL Aspartate Amino Transf 857 U/L 827 U/L (AST/SGOT) Alanine Aminotransferase 2067 U/L 2062 U/L (ALT/SGPT) Alkaline Phosphatase 168 U/L 176 U/L Total Protein 6.9 GM/DL 7.2 GM/DL Albumin 3.1 GM/DL 3.3 GM/DL Direct Bilirubin 3.4 MG/DL Indirect Bilirubin 1.4 MG/DL ASSESSMENT/PLAN: acute hepatitis most likely viral heap c ab positive-await viral load and genotype elevated ferritin/iron may need genetic testing hemochromatosis Recommendations ok to dc home from gi point repeat [facility] 1 weeks fu office 1-2 weeks return to ed if worsening symptoms fu all labs avoid all hepatotoxics It was a pleasure seeing Judson Mayberry. Thank you for this consult. Entered by: Roma Martin MD Sep 28, 2016 15:34
[2016-09-29 11:57] LABS: MITOCHONDRIAL ABS LESS THAN 20.0 U (())
[2016-09-30 03:53] LABS: HCV RNA PCR IU/ML 474000 IU/mL (()); HCV RNA PCR LOGIU/ML 5.68 (())
[2016-09-30 19:53] LABS: HEPATITIS C RNA GENOTYPE 2b (())
[2016-10-06 12:15] LABS: HEREDITARY HEMOCHROM SPECIMEN WB Whole Blood (())
== END 2016-09-28 16:03 | disposition home or self-care (01) | DRG 442 ==
LOC: NETRI 14:03 → NEDA 23:05 → N06A 09-25 01:33
PROVIDERS: ADMIT Hospitalist; ATTEND Hospitalist
DX: K72.90 Hepatic failure, unspecified without coma (principal); B17.9 Acute viral hepatitis, unspecified; I10 Essential (primary) hypertension; K59.00 Constipation, unspecified; K76.0 Fatty (change of) liver, not elsewhere classified
CPT/HCPCS: 71010; 74177; 76705; 80048; 80053; 80074; 80076; 80329; 81001; 81256; 82103; 82105; 82390; 82550; 82728; 82948; 83520; 83540; 83550; 85025; 85610; 86038; 86256; 87522; 87804; 87902; 96374; G0480; J2270; J7030; Q9967

== ENCOUNTER 2016-10-01 14:54 | Emergency (ER) | payer SELFPAY ==
[~2016-10-01] VITALS: Ht 190.5 cm; Wt 130.0 kg
[~2016-10-01 14:54] MED LIST: OXYC-392 PO
[2016-10-01 14:59] VITALS: BP 141/97; PULSE 90; RESP 14; TEMP 97.8; O2SAT 97
--- NOTE | 2016-10-01 16:57 | PD ---
HPI Chief Complaint: Medication Refill Request Time Seen by Provider: 16:55 Travel History International Travel<30 days: No Contact w/Intl Traveler<30days: No Traveled to known affect area: No History of Present Illness HPI 31-year-old male presents to ED for narcotic pain medication refills. Patient complains of mid back pain, no alleviating or exacerbating factors report.. Also complains of right-sided abdominal pain. Denies fever, chills, nausea, vomiting, melena, hematochezia, constipation,diarrhea, dysuria. Endorses well- formed bowel movement today. Patient was recently diagnosed with hepatitis and liver failure. He was discharged from the hospital 09/28. He was prescribed oxycodone for pain. States that he was strictly prohibited from using aspirin, ibuprofen or Tylenol. States that the provider who prescribed the medication told him he could come to his primary care, gastroenterology or the emergency room for refills. History Social History Alcohol Use: Yes (Hardly...) Tobacco Use: No (former) Allergies-Medications (Allergen,Severity, Reaction): Coded Allergies: Hydrocodone (Verified Allergy, Severe, HOT & ITCHY., 10/01/16) Latex (Verified Allergy, Severe, Itching, 10/01/16) Aspirin (Verified Adverse Reaction, Severe, STOMACH DELEON, 10/01/16) Reported Meds & Prescriptions Reported Meds & Active Scripts Active Oxycodone (Oxycodone HCl) 5 Mg Tab 5 Mg PO Q6H PRN Review of Systems Except as stated in HPI: all other systems reviewed are Neg Physical Exam Narrative GENERAL: Well-nourished, well-developed white male in no acute distress. SKIN: Warm and dry. HEAD: Normocephalic. EYES: No scleral icterus. No injection or drainage. NECK: Supple, trachea midline. No JVD or lymphadenopathy. CARDIOVASCULAR: Regular rate and rhythm without murmurs, gallops, or rubs. 2+ DP and radial pulses bilaterally. RESPIRATORY: Breath sounds clear and equal bilaterally. No accessory muscle use. GASTROINTESTINAL: Abdomen soft, non-tender, nondistended. Active bowel sounds. MUSCULOSKELETAL: No cyanosis, or edema. 5/5 strength in the bilateral lower extremities. BACK: No obvious deformity. No CVA tenderness. Mild tenderness in the paraspinal musculature in the thoracic region. Data Data Last Documented VS Vital Signs Date Time Temp Pulse Resp B/P Pulse Ox O2 Delivery O2 Flow Rate FiO2 10/01/16 14:59 97.8 90 14 141/97 97 MDM Medical Screen Exam Complete: Yes Emergency Medical Condition: No Differential Diagnosis Musculoskeletal pain versus back strain versus malingering versus other Narrative Course 31-year-old male presents to ED for narcotic pain medication refills. Patient complains of mid back pain, no alleviating or exacerbating factors report.. Also complains of right-sided abdominal pain. Denies fever, chills, nausea, vomiting, melena, hematochezia, constipation,diarrhea, dysuria. Endorses well- formed bowel movement today. Vitals reviewed. Physical exam reveals mild tenderness to palpation of the paraspinal musculature of the lower thoracic area. Abdominal exam is benign. View of the record confirms the patient was recently diagnosed with acute liver failure and discharged on 09/28. He was indeed prescribed oxycodone for pain. However I see no indication for narcotic pain medication at this time. He endorses follow-up with the industrial waste inspector in 5 days. I suggested symptomatic treatment with return to normal, gentle activities, light massage, warm or cold compresses applied a couple times a day. No medical emergency exists at this time. A medical screening exam was performed: At the time of evaluation the presenting medical condition was determined not to be of an emergent nature. The patient was given the option of receiving additional care, but declined. Patient was given options for additional community resources from which to obtain care. The Patient Has Been advised to seek medical attention for their presenting complaint. The patient has been advised to return to the ER at any time if an emergent condition develops. Primary Impression: Encounter for medical screening examination Condition: Stable Mehreen Faye Oct 01, 2016 16:57
== END 2016-10-01 17:11 | disposition left against medical advice (07) ==
LOC: NEPB 14:54
DX: M54.9 Dorsalgia, unspecified (principal); K76.9 Liver disease, unspecified; Z76.0 Encounter for issue of repeat prescription
CPT/HCPCS: 99281